=== PATIENT | male | born 1960 | race African-American/Black ===

== ENCOUNTER → 2020-05-08 | Day surgery (SDC) | payer MEDICARE, BC ==
[~2020-05-08] VITALS: Ht 190.5 cm; Wt 111.1 kg
[2020-05-08] VITALS (8 sets, daily range): BP systolic 117–140; BP diastolic 60–89
[~2020-05-08] MED LIST: ACETAMINOPHEN325 M1 ORAL; AMBIEN5 MG ORAL; DOCUSATE SODIU250 MG ORAL; GABAPENTIN300 MG ORAL; LIPITOR20 MG ORAL; LR 1000ml 1,000 ML IVLG SCH; LR 1000ml ONE; Lidocaine 1% MPF 10mg/ml 5ml ONE; MELATONIN10 M2 ORAL; MULTIVITAMINS1 EAC2 ORAL; NORVASC2.5 MG ORAL; OMEPRAZOLE20 M3 ORAL; OXYCODONE-ACET1 EAC3 ORAL; SEROQUEL50 MG ORAL; TIZANIDINE HCL4 MG ORAL; TRAMADOL HCL50 MG ORAL; ZANAFLEX2 M1 ORAL
--- NOTE | 2020-05-08 11:02 | Short Stay Surgery H&P ---
History of Present Illness History of Present Illness Chief Complaint see report HPI Hussein Sweet is a 59 year old male who was admitted on for Blood In Stool Patient History Allergies: Coded Allergies: No Known Allergies (Unverified , 10/17/13) Medication History Scheduled Amlodipine Besylate (Norvasc), 2.5 MG ORAL DAILY, (Reported) Atorvastatin Calcium* (Lipitor*), 20 MG ORAL DAILY, (Reported) Docusate Sodium* (Docusate Sodium*), 250 MG ORAL TWICE A DAY, (Reported) Gabapentin* (Gabapentin*), 300 MG ORAL THREE TIMES A DAY, (Reported) Multivitamins* (Multivitamins*), 1 TAB ORAL DAILY, (Reported) Omeprazole (Omeprazole), 20 MG ORAL DAILY, (Reported) Quetiapine Fumarate (Seroquel), 200 MG ORAL DAILY, (Reported) Quetiapine Fumarate (Seroquel), 200 MG ORAL DAILY, (Reported) Scheduled PRN Acetaminophen* (Acetaminophen 325MG Tablet*), 650 MG ORAL Q6H PRN for For Pain, (Reported) Tramadol Hcl* (Ultram*), 50 MG ORAL Q6H PRN for For Pain, (Reported) Discontinued Medications Melatonin (Melatonin), 10 MG ORAL BEDTIME PRN for Insomnia, (Reported) Discontinued Reason: Pt stopped taking med Oxycodone Hcl/Acetaminophen 5-325* (Oxycodone-Acetaminophen 5-325*), 1 TAB ORAL Q4H PRN for For Pain, (Reported) Discontinued Reason: Pt stopped taking med Tizanidine Hcl (Zanaflex), 2 MG ORAL DAILY, (Reported) Discontinued Reason: Pt stopped taking med Tizanidine Hcl* (Zanaflex*), 4 MG ORAL BEDTIME, (Reported) Discontinued Reason: Pt stopped taking med Zolpidem Tartrate* (Ambien*), 5 MG ORAL BEDTIME PRN for Insomnia, (Reported) Discontinued Reason: Pt stopped taking med Physical Exam Vital Signs Last Vital Signs Date Time Temp Pulse Resp B/P (MAP) Pulse Ox O2 Delivery O2 Flow Rate FiO2 05/08/20 10:22 Room Air 05/08/20 10:06 97.2 73 18 117/80 97 Plan Attestation Are the patient's medical conditions optimized for surgery? Hao Mera MD May 08, 2020 11:02
--- NOTE | 2020-05-08 11:03 | Pre-Procedure Note/Attestation ---
Pre-Procedure Note/Attestation Complete Prior to Procedure Planned Procedure: not applicable Procedure Narrative: EGD colon Indications for Procedure Pre-Operative Diagnosis: Heme (+) Attestation I attest that I discussed the nature of the procedure; its benefits; risks and complications; and alternatives (and the risks and benefits of such alternatives), prior to the procedure, with the patient (or the patient's legal enrollment representative). I attest that, if there was a reasonable possibility of needing a blood trans fusion, the patient (or the patient's legal enrollment representative) was given the [facility] standardized written summary, pursuant to the Josh Renny Blood Safety Act ([place] Health and Safety Code # 1645, as amended). I attest that I re-evaluated the patient just prior to the surgery and that there has been no change in the patient's H&P, except as documented below: Hao Mera MD May 08, 2020 11:03
--- NOTE | 2020-05-08 11:38 | Anethesia Preoperative Eval ---
Anesthesia Pre-op PMH/ROS General Date of Evaluation: May 08, 2020 Time of Evaluation: 11:00 Anesthesiologist: lincoln ASA Score: ASA 3 Mallampati Score Class I : Soft palate, uvula, fauces, pillars visible Class II: Soft palate, uvula, fauces visible Class III: Soft palate, base of uvula visible Class IV: Only hard plate visible Mallampati Classification: Class III Surgeon: leticia Diagnosis: blood in stool Surgical Procedure: egd/colonoscopy Anesthesia History: none Family History: no anesthesia problems Allergies: Coded Allergies: No Known Allergies (Unverified , 10/17/13) Medications: see eMAR Patient NPO?: Yes NPO Date: May 08, 2020 NPO Time: 00:01 Past Medical History Cardiovascular: Reports: HTN; Denies: CAD, [place], valve dz, arrhythmia, other Pulmonary: Reports: CHACORTA - cpap; Denies: asthma, COPD, other Gastrointestinal/Genitourinary: Reports: GERD; Denies: CRI, ESRD, other Neurologic/Psychiatric: Denies: dementia, CVA, depression/anxiety, TIA, other Endocrine: Denies: DM, hypothyroidism, steroids, other HEENT: Denies: cataract (L), cataract (R), glaucoma, [place] (L), [place] (R), other Hematology/Immune: Denies: anemia, DVT, bleeding disorder, other Musculoskeletal/Integumentary: Denies: OA, RA, DJD, DDD, edema, other Other: obesity PSxH Narrative: shoulder surgery Anesthesia Pre-op Phys. Exam Physician Exam Last Vital Signs Date Time Temp Pulse Resp B/P (MAP) Pulse Ox O2 Delivery O2 Flow Rate FiO2 05/08/20 10:22 Room Air 05/08/20 10:06 97.2 73 18 117/80 97 Constitutional: NAD Neurologic: CN 2-12 intact Cardiovascular: RRR Respiratory: CTA Gastrointestinal: S/NT/ND Airway Exam Mallampati Classification 3 Mallampati Score: Class III MO: limited Neck: thick Dentures: no upper, no lower Anesthesia Pre-op A/P Studies Pre-op Studies: EKG - sr Risk Assessment & Plan Assessment: covid neg Plan: mac Status Change Before Surgery: No Pre-Antibiotics Drug: declined Lyndsay Genao CRNA May 08, 2020 11:38
--- NOTE | 2020-05-08 11:51 | Immediate Post-Op Evaluation ---
Immediate Post-Op Evalulation Immediate Post-Op Evalulation Procedure: EGD/Colonoscopy Date of Evaluation: May 08, 2020 Time of Evaluation: 11:50 IV Fluids: 500 Blood Pressure Systolic: 126 Blood Pressure Diastolic: 60 Pulse Rate: 64 Respiratory Rate: 14 O2 Sat by Pulse Oximetry: 98 Temperature (Fahrenheit): 97.4 Nausea: No Vomiting: No Complications none Patient Status: awake, reacts, patent Hydration Status: adequate Drug: none GerariLyndsay fall CRNA May 08, 2020 11:50
--- NOTE | 2020-05-09 02:15 | Procedure Note ---
DATE OF PROCEDURE: 05/08/2020 PROCEDURE: Upper gastrointestinal endoscopy with enteroscopy and foreign body removal as well as colonoscopy. SURGEON: Hao Mera MD PRE-ENDOSCOPIC DIAGNOSIS: Heme-positive stools. POST-ENDOSCOPIC DIAGNOSES: 1. Status post Jaz-en-Y gastric bypass anatomy as expected. 2. A 8 cm gastric pouch half a which was within the hiatal hernia. 3. A 3 cm diameter gastrojejunostomy anastomosis. 4. Sheet like covering of the lower esophagus and possibly fungal infection. The sheet like covering was removed in one piece through the mouth with a biopsy forceps. 5. Normal colonoscopy including 10 cm of the terminal ileum. DESCRIPTION OF PROCEDURE: Procedure its risks, indications, alternatives, and possible complications were explained to the patient and informed consent was obtained. The patient was then sedated in the left lateral decubitus position and a diagnostic upper endoscope was introduced through the oropharynx and advanced to the small bowel. The endoscope was then gradually withdrawn and mucosa examined carefully. Examination of the upper gastrointestinal mucosa revealed the Jaz-en-Y gastric bypass anatomy as expected with 8 cm gastric pouch with a hiatal hernia. In the lower esophagus, there was a large sheet like white material which could be removed with the endoscope. It was likely growth and it was brought with suction of catheter and brought out through mouth. The remainder of the upper gastrointestinal evaluation is as listed above. The endoscope was removed and the colonoscope was introduced in the rectum and advanced to the terminal ileum. The colonoscope was then gradually withdrawn and mucosa examined carefully. No significant findings were identified in the lower GI examination. The patient was left to recovery in good condition. COMPLICATIONS: None. RECOMMENDATIONS: 1. Followup pathology results. 2. Consider repeat stool occult blood test as an outpatient. Hao Mera M.D. DR: Elli JOB#: [id number] CC: Hao Mera M.D.; Fax#: [phone]
== END | disposition home or self-care (01) ==
LOC: GAS 09:30
DX: K92.1 Melena (principal); Z98.84 Bariatric surgery status; K44.9 Diaphragmatic hernia without obstruction or gangrene; Z79.899 Other long term (current) drug therapy; I10 Essential (primary) hypertension; K21.9 Gastro-esophageal reflux disease without esophagitis; G47.33 Obstructive sleep apnea (adult) (pediatric); E66.9 Obesity, unspecified
CPT/HCPCS: 43247; 45378; 94003; J2704; J7120; U0002; 94150